=== PATIENT | male | born 1995 | race African-American/Black ===

== ENCOUNTER 2020-12-09 17:44 | Emergency (ER) | payer OTHER ==
[~2020-12-09] VITALS: Ht 170.2 cm; Wt 61.2 kg
[2020-12-09 18:06] LABS: ABSOLUTE NEUTROPHILS 4.9 thou/uL (1.4-8.2); BASOPHILS 0.6 % (0.0-2.0); HEMATOCRIT 43.8 % (42.0-52.0); HEMOGLOBIN 14.9 gm/dL (14.0-18.0); LYMPHOCYTES 28.6 % (24.0-44.0); MCH 29.8 pg (26.0-34.0); MCV 87.8 fL (80.0-100.0); MONOCYTES 6.8 % (1.0-8.0); PLATELET COUNT 213 thou/uL (150-400); RBC 4.99 mil/uL (4.50-6.00); RDW 12.7 % (10.5-14.5); WBC 7.8 thou/uL (4.0-11.0)
[2020-12-09 18:18] LABS: CALCIUM 9.4 mg/dL (8.5-10.1); POTASSIUM 3.6 mmol/L (3.5-5.1)
[2020-12-09] MEDS ORDERED: ONDANSETRON HCL4 M2 PO (19:09)
[2020-12-09 19:27] VITALS: BP 129/94
== END 2020-12-09 19:29 | disposition home or self-care (01) ==
LOC: ER 17:44
PROVIDERS: Nurse Practitioner
DX: R51.9 Headache, unspecified (principal); R11.2 Nausea with vomiting, unspecified